=== PATIENT | female | born 1970 | race Caucasian/White ===

== ENCOUNTER 2017-06-16 13:40 | Observation (INO) | payer MEDICAID, SELFPAY ==
[2017-06-16] VITALS (9 sets, daily range): BP systolic 132–159; BP diastolic 89–98; PULSE 64–89; RESP 16–20; TEMP 36.8–37.2; O2SAT 94–99; BMI 24.5
--- NOTE | 2017-06-16 | THYROID_PTH ---
PATIENT: JERSEY FUCHS LOC: [facility] U#:[id number] AGE/SX: 47/F ROOM: [facility]318 RE06/16/[address]: Dr. Iker Ceron MD : 1970 BED: 1 DIS: 06/17/2017 SPEC #: [id number] RECD: 06/16/17 12:32 STATUS: KEYANNA RERivas #: [id number] JIMMIE: 06/16/17 00:[address]: Iker Ceron DEPT: SURGICAL PATHOLOGY RECD BY: Jamia Calderon ENTERED: 06/16/17 13:56 SP TYPE: THYROID OTHR DR: Out of [facility] Doctor Tissues: A - Thyroid gland, NOS B - Thyroid gland, NOS Procedures: Frozen Section (charge) Surgery Specimen Level V Frozen (no charge) HEADER OPERATION: Thyroidectomy PRE-OP DIAGNOSIS: Multinodular goiter TISSUE SUBMITTED: A ? Left lobe of thyroid for FS at 1229, B ? Right lobe of thyroid for FS at 1301 FROZEN SECTION DIAGNOSIS A. Left lobe of thyroid, lobectomy: Multinodular goiter. B. Right lobe of thyroid, lobectomy: Multinodular goiter. SJ:jp 06/16/17 MICROSCOPIC DIAGNOSIS A. Left lobe of thyroid, lobectomy: Multinodular goiter. B. Right lobe of thyroid, lobectomy: Multinodular goiter with adenomatoid nodules. DALIA:jp 06/20/17 MICROSCOPIC DESCRIPTION Slides are reviewed. GROSS DESCRIPTION A - Received fresh for frozen section diagnosis labeled with the patient's name is a specimen designated left lobe of thyroid. The specimen consists of a lobectomy specimen weighing 52.2 gm and measuring 8?x 6.5 x 2.8 cm. No external parathyroid tissue is identified. The specimen is inked as follows: anterior surface ? black, posterior surface ? blue. Serial sections reveal multinodular cut surfaces with nodules showing gelatinous cut surfaces. The largest nodule measures 3 cm in greatest dimension. A section from the largest nodule is submitted for frozen section diagnosis. Rate Clerk Passenger sections are submitted in eight cassettes as follows: 1 ? frozen section, largest nodule, 28 ? senior human resources representative sections from the other areas. B - Received fresh for frozen section diagnosis labeled with the patient's name is a specimen designated right lobe of thyroid. The specimen consists of a lobectomy specimen weighing 66.4 gm and measuring 9 x 5 x 5 cm. No external parathyroid tissue is identified. The specimen is inked as follows: anterior ? black, posterior ? blue. Serial sections reveal multinodular cut surfaces with nodules predominantly consisting of gelatinous cut surfaces. The largest nodule measures 3 cm in greatest dimension. A section from the largest nodule is submitted for frozen section diagnosis. Rate Clerk Passenger sections are submitted in eight cassettes as follows: 1 ? frozen section, largest nodule, 2-8 ? senior human resources representative sections from the other areas. / DALIA:jp 06/19/17 TC:5 CPT: 33556 x2, 29249 x2
--- NOTE | 2017-06-16 09:35 | EKG12_ITS ---
Test Reason : PREOP Blood Pressure : / mmHG Vent. Rate : 068 BPM Atrial Rate : 068 BPM P-R Int : 140 ms QRS Dur : 078 ms QT Int : 392 ms P-R-T Axes : 071 066 065 degrees QTc Int : 416 ms Normal sinus rhythm Normal ECG No previous ECGs available Confirmed by NAOMI SOLIMAN, BRIDGETT ([id number]), market editor MARY VERAS ([id number]) on 06/20/2017 1:48:11 PM Referred By: Iker Ceron Confirmed By:BRIDGETT SALGADO MD
[2017-06-16 10:38] LABS: Anion Gap 7 (5-15); BUN 9 mg/dL (7-18); BUN/Creat Ratio 15.9 RATIO (10-20); Calcium,Total 8.5 mg/dL (8.5-10.1); Chloride 112 mmol/L (98-107); Creatinine, Serum 0.56 mg/dL (0.55-1.02); EST Glomerular Filtration Rate 123 mL/min (>60); Est Glom Filt Rate - Afr Amer 148 mL/min (>60); Estimated Creatinine Clearance 117.51 ml/min; Glucose 119 mg/dL (74-106); Potassium 3.9 mmol/L (3.5-5.1); Sodium Level 141 mmol/L (136-145)
[2017-06-16 10:51] LABS: Pregnancy, Serum, hCG Quali. NEGATIVE Negative (0-9 Nonpreg)
--- NOTE | 2017-06-16 13:35 | PCM.OPRPT ---
Problem List (1) Multinodular goiter Status: Chronic Report of Operation Date of Procedure: 06/16/17 Pre-Operative Diagnosis: Multinodular goiter Post-Operative Diagnosis: same Surgery/Procedure Performed:: Total thyroidectomy with recurrent laryngeal nerve monitoring Description of Surgical Findings:: Aline is a 47-year-old female presents for evaluation of multinodular goiter. She had multiple large nodules with a needle biopsy revealing benign findings of the dominant nodule however given its large size and compressive symptoms excision was offered for alleviation of this complaint as well as evaluation of the multitude of large nodules and she was eager to proceed. The risks, alternatives, potential benefits, and complications were discussed at length and any questions answered to the patient and/or caregiver's satisfaction. Witnessed informed consent was obtained in the office, and the patient and/or caregiver was agreeable to proceed. Procedure went as follows: The patient was identified in the preoperative holding and brought to the operating room, placed under general anesthesia and intubated. The neuro monitoring electrodes were then placed in the chest and confirmed to be operational in accordance with the trouble tracer's directions to allow for recurrent laryngeal nerve monitoring. The neck was then prepped and draped in usual sterile fashion and the planned skin incision in marked 2 finger breaths above the sternal notch with a marking pen. The incisional line was then injected with 1% lidocaine with 100,000 epinephrine for a total of 4.5 cc. After allowing for vasoconstriction, a 15 blade scalpel was used to make an incision 8 cm in length through the skin and subcutaneous tissues and platysma. A subplatysmal flap was then elevated superiorly and inferiorly to allow placement of the self-retaining thyroid retractor. The strap muscles were then divided in the midline and beginning on the left side the thyroid lobe dissected in a sub-capsular fashion. The inferior, middle, and superior thyroid vessels were individually clamped and ligated with vascular clips. The parathyroid glands were identified along the inferior vascular pedicle and preserved the recurrent laryngeal nerve was also identified and followed to its nerve entry point and the thyroid gland dissected free of its attachments to the trachea at Broyle's ligament. This was then transected at the isthmus and sent for pathologic evaluation. Attention was then turned to the contralateral side where similar dissection was carried out and completed again with preservation of the laryngeal nerve and parathyroid glands. The wound bed was then irrigated saline solution and examined for sites of bleeding. No significant bleeding was encountered and #7 flat drains were then placed into each tracheoesophageal groove and brought out through a separate stab incision in the neck and secured with 3-0 silk sutures. The strap muscles were then re-approximated in the midline with a running 3-0 Vicryl suture followed by interrupted 3-0 Vicryl sutures to close the platysma and subcutaneous tissues. A 5-0 Monocryl was then used to close the skin followed by Steri-Strips completing the procedure. An NG tube was then placed to decompress the stomach and the patient returned to anesthesia, revived and extubated having tolerated the procedure well. Type of Anesthesia:: General Anesthesiologist: Regino Bone Specimen's removed: total thyroid Drains: #7 flat ROLA Estimated Blood Loss (mL): 50 mL Fluids Replaced: 1500 mL Grafts/Implants Used: none - Complications none - Admit VTE Documentation VTE Present on Admission: No VTE Mechan Device Prophylaxis: SCD's VTE Pharm Prophylaxis ordered?: No
[2017-06-16] MEDS: Ibuprofen 400 MG Tablet PO (17:53)
[2017-06-16] MEDS: Lactated Ringers 1,000 ML 100 ML IV (17:54)
[2017-06-16] MEDS: Acetaminophen 325 MG Tablet 650 MG PO (19:42)
[2017-06-16] MEDS: DiphenhydrAMINE 25 MG Capsule 50 MG PO (21:50)
[2017-06-16] MEDS: Ibuprofen 400 MG Tablet 800 MG PO (21:51)
[2017-06-17] MEDS: Acetaminophen 325 MG Tablet 650 MG PO ×2 (00:49→05:45)
[2017-06-17 01:45] VITALS: BP 137/80; PULSE 64; RESP 20; TEMP 36.6; O2SAT 100
[2017-06-17] MEDS: Lactated Ringers 1,000 ML 100 ML IV (02:28)
[2017-06-17] MEDS: Ibuprofen 400 MG Tablet 800 MG PO (05:45)
[2017-06-17 07:17] LABS: Calcium,Total 8.2 mg/dL (8.5-10.1)
[2017-06-17 08:02] VITALS: BP 133/85; PULSE 83; RESP 20; TEMP 37; O2SAT 94
--- NOTE | 2017-06-17 10:12 | PCM.PN.SRG ---
Subjective: Doing well, denies significant pain, oh-oral numbness or tingling. Objective: Well appearing, negative Chvostek's sign. Neck incision dry without redness or swelling. - Physical Exam General: Alert, Oriented x3 HEENT: Atraumatic, PERRLA Oral: Moist Mucosa Neck: Supple, Trachea Midline Lungs: Normal air movement, No rhonchi, No wheeze Skin: No rashes, No breakdown Psych/Mental Status: Normal Affect Vital Signs Temp Pulse Resp BP Pulse Ox 98.6 F 83 20 H 133/85 H 94 06/17/17 08:02 06/17/17 08:02 06/17/17 08:02 06/17/17 08:02 06/17/17 08:02 Oxygen Delivery Method Room Air Weight: 69 kg Body Mass Index (BMI) 24.5 Intake and Output for Last 24 Hours 06/15/17 06/16/17 06/17/17 23:59 23:59 23:59 Intake Total 1600 / 1600 1943 / 1943 Output Total 785 / 785 Balance 1585 / 1585 1158 / 1158 Laboratory Tests Past 24 Hrs 06/16/17 06/16/17 06/17/17 10:15 10:15 06:36 Sodium 141 Potassium 3.9 Chloride 112 H Carbon Dioxide 22.0 Anion Gap 7 BUN 9 Creatinine 0.56 Estim Creat Clear Calc 117.51 Est GFR (MDRD) Af Amer 148 Est GFR (MDRD) Non-Af 123 BUN/Creatinine Ratio 15.9 Glucose 119 H Calcium 8.5 8.2 L Serum , Qual NEGATIVE Medical Necessity - Tobacco Use Smoking Status: Current every day smoker Assessment/Plan Doing well after total thyroidectomy. Slight depression of calcium level, asymptomatic. Drains removed at bedside, discharge planned for this morning.
--- NOTE | 2017-06-17 10:16 | DCINST_ITS ---
- Discharge Diagnoses Current Active Problems: Current Active and Chronic Problems Multinodular goiter (Chronic) You will use the following diet at home:: No restrictions Discharge Activity: Return to Normal Activity Call your doctor if your incision/area has: Increased Pain/ Swelling, Increased Redness, Swelling at the incision site Call your doctor if you observe: Fever of 101 or Higher, Shortness of breath, Uncontrolled pain, - - oh-oral numbness or tingling, muscle cramping or spasms , chest tightness or discomfort Suture Line Care: Avoid Pulling/Pushing Cleanse incision/area with: Soap & Water Allergies/Adverse Reactions: Allergies No Known Allergies Allergy (Verified 06/14/17 11:39) Medications to take at Discharge NK [NK] 06/14/17 Primary Care Physician: Jayne Jose,Out of [Primary Care Provider] - Please Follow Up With: Iker Ceron MD When: 2 weeks
[2017-06-17] MEDS: Levothyroxine 100 MCG Tablet PO (10:55)
== END 2017-06-17 11:15 | disposition home or self-care (01) ==
LOC: SDC 14:22
PROVIDERS: Admitting Provider Otolaryngology; Visit Provider Otolaryngology
PROC: (CPT 60240; principal; 2017-06-16 10:50)
DX: E04.2 Nontoxic multinodular goiter (principal); F17.200 Nicotine dependence, unspecified, uncomplicated; G25.81 Restless legs syndrome; I10 Essential (primary) hypertension; G47.30 Sleep apnea, unspecified
CPT/HCPCS: 00320; 60240; 36415; 80048; 82310; 84703; 88307; 88331; 93005; 96360; 96361; 97802; 99218; J7120; G0378; G0379; J2405; J3490